=== PATIENT | male | born 1985 | race Caucasian/White ===

== ENCOUNTER 2018-11-16 05:52 | Day surgery (SDC) | payer OTHER ==
[2018-11-16] MEDS ORDERED: ceFAZolin 2 GM/50 ML 2 GM/50 ML BAG IV ONE (06:15)
[2018-11-16] MEDS ORDERED: LACTATED RINGERS 1,000 ML IV ONE (06:42)
--- NOTE | 2018-11-16 07:06 | ANESTHESIA ---
Pre-Anesthesia VS, & Labs - Diagnosis anal fissure, penile mass - Procedure anal fissurectomy, lateral sphincterotomy excision of penile shaft mass/lesion Vital Signs: Temp Pulse Resp BP Pulse Ox 36.9 C 80 18 137/97 H 97 11/16/18 06:15 11/16/18 06:15 11/16/18 06:15 11/16/18 06:15 11/16/18 06:15 Height 6 ft 2 in Weight (kg) 108.3 kg - NPO >8 hours Home Medications and Allergies Home Medications: Ambulatory Orders Ibuprofen 600 mg PO Q8HR PRN 11/08/18 Melatonin 1 mg PO QPM PRN 11/08/18 Ibuprofen 600 mg PO Q8HR PRN 11/08/18 Melatonin 1 mg PO QPM PRN 11/08/18 Allergies/Adverse Reactions: Allergies Allergy/AdvReac Type Severity Reaction Status Date / Time No Known Drug Allergies Allergy Verified 11/08/18 10:39 Anes History & Medical History - Anesthetic History Anesthesia Complications: reports: No previous complications - Medical History Cardiovascular: reports: Hypertension Pulmonary: reports: None Gastrointestinal: reports: None Urinary: reports: Kidney stones Musculoskeletal: reports: Chronic back pain Endocrine/Autoimmune: reports: None Skin: reports: None Exam General: Alert Dental: Other (upper permenant bridge) Mouth Opening: Greater than 4 Fingerbreadths Neck Mobility: Normal Mallampati classification: II Thyromental Distance: greater than 6 cm Respiratory: Lungs clear Cardiovascular: Regular rate Plan Anesthesia Type: General, MAC Consent for Procedure(s) Verified and Reviewed: Yes Code Status: Attempt Resuscitation ASA classification: 2-Mild systemic disease Is this case an emergency?: No
[2018-11-16] MEDS ORDERED: BUPIVACAINE 0.5% PF 30 ML VIAL ONE (07:08)
[2018-11-16] MEDS ORDERED: BUPIVACAINE 0.5%-EPI 1:200000 PF 30 ML VIAL ONE (07:08)
[2018-11-16] MEDS ORDERED: LIDOCAINE OINTMENT 5% 35.44 GM TUBE ONE (07:09)
[2018-11-16] MEDS ORDERED: LIDOCAINE 1% 50 ML MDV ONE (07:09)
[2018-11-16] MEDS ORDERED: LIDOCAINE JELLY 2% 6 ML JEL.PF.APP ONE (07:44)
[2018-11-16] MEDS ORDERED: ONDANSETRON 4 MG/2 ML VIAL IVP ONE (08:00)
[2018-11-16] MEDS ORDERED: fentaNYL 100 MCG/2 ML VIAL IVP ONE (08:00)
[2018-11-16] MEDS ORDERED: KETOROLAC 30 MG/ML VIAL IVP ONE (08:00)
[2018-11-16] MEDS ORDERED: LIDOCAINE-MPF 2% 5 ML VIAL IM ONE (08:00)
[2018-11-16] MEDS ORDERED: DEXAMETHASONE 4 MG/ML VIAL IVP ONE (08:00)
[2018-11-16] MEDS ORDERED: MIDAZOLAM 2 MG/2 ML VIAL IVP ONE (08:00)
[2018-11-16] MEDS ORDERED: PROPOFOL 200 MG/20 ML VIAL IVP ONE (08:00)
[2018-11-16] MEDS ORDERED: LIDOCAINE JELLY 2% 6 ML JEL.PF.APP UR ONE (08:12)
[2018-11-16] MEDS ORDERED: BUPIVACAINE 0.5% PF 30 ML VIAL INFIL ONE (08:13)
--- NOTE | 2018-11-16 08:57 | OPERATIVE REPORT ---
Operative Report - General Procedure Date: 11/16/18 Planned Procedure: Anal fissurectomy, lateral internal anal sphincterotomy, and excision of pe Pre-Op Diagnosis: Anal fissure and penile shaft lesion Procedure Performed: Anal fissurectomy Lateral internal anal sphincterotomy Excision of penile shaft lesion Post Op Diagnosis: Same - Procedure Note Primary Surgeon: Jose Luis Martin MD Anesthesia Provider: William Levi CRNA Anesthesia Technique: General LMA, Local (30 mL of half percent Marcaine) IV Fluids (mL): 700 Estimated Blood Loss (mL): 5 Drain/Tube Type: Other (None.) Complications: None. - Other Other Information/Narrative: OPERATIVE DESCRIPTION/REPORT: After verbal and written informed consent was obtained detailing the risks of infection, bleeding requiring transfusion with its risks, nerve injury, and , and after I met with the patient confirming the surgery and the site of the surgery, the patient was brought to the operative suite and placed supine on the operating table. Great care was taken to avoid pressure points to prevent pressure necrosis or nerve injury. Monitoring devices were applied along with TEDs and pneumatic compressive stockings (to prevent DVT). The patient received preoperative antibiotics for surgical prophylaxis. William Levi CRNA sedated and anesthetized the patient for the entire procedure. The patient was then placed in lithotomy position. The patient was prepped and draped in the usual sterile manner. A "time in" then confirmed that the patient was identified with 3 identifiers (name, date and medical record number), the history and physical was in the chart, the signed consent confirming the procedure was in the chart, the patient was in the correct position, the aforementioned prophylactic measures were in place or given, we had the correct personnel and equipment to complete the procedure and that anesthesia, surgery and nursing were given an opportunity to express any concerns. With the agreement of everyone in the room, we proceeded with the operation. After injecting the area underneath the penile lesion with half percent Marcaine raising a wheal, the lesion was excised using Metzenbaum scissors in an elliptical fashion. The skin was approximated using 2 simple 4-0 Monocryl sutures. These were placed in a standard fashion not in a subcuticular fashion primarily for hemostatic purposes. The lesion was sent in formalin for pathologic evaluation. After circumferentially injecting the anal and perianal area with % marcaine, the bivalve anal retractor was placed in the patients anus after thoroughly lubricating it with a water-soluble lubricant. 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 This was excised using serial application of the Bovie electrocautery and meticulous hemostasis was noted. At the patient's left hand side, what would be the 9 o'clock position, a 15 blade knife was used to incise the internal sphincter after palpating the area to ensure that the knife was inserted into the intersphincteric groove. A very small incision in the mucosa was made. Hemostasis was obtained using Bovie electrocautery and the wound was not closed. A roll of gelfoam and 2% lidocaine jelly was fashioned and inserted into the patients anus. The entire anal area was re-injected with % marcaine to try to ensure long-term pain control. A total of 30 mL of half percent Marcaine was injected. At this point a time out was performed that confirmed that all the counts were correct, the procedure that was performed, the blood loss, the IV fluids administered, and the patients condition. Having tolerated the procedure well, the patient was subsequently extubated and taken to recovery room in good and stable condition. [employer] disclaimer: This document was created in part using voice recognition technology. Because of the inherent limitations of the system ([employer]'s [employer] user manual states that the licensee understands that speech recognition is a statistical process and that recognition errors are inherent in the process), occasional same sounding word substitutions and grammatical errors do occur and persist despite proofreading. Please read this document for context.
[2018-11-16] MEDS ORDERED: HYDROmorphone 0.5 MG/0.5 ML SYRINGE IVP PRN (09:07)
[2018-11-16] MEDS ORDERED: ONDANSETRON 4 MG/2 ML VIAL IVP PRN (09:07)
[2018-11-16] MEDS ORDERED: HYDROcod/ACETAM 5/325 MG TABLET PO PRN (09:07)
[2018-11-16 10:07] VITALS: BP 136/98
[2018-11-16] MEDS ORDERED: HYDROcod/ACETAM 5/325 MG TABLET ONE (10:28)
== END 2018-11-16 05:53 | disposition home or self-care (01) ==
LOC: SDS 05:52
PROVIDERS: ATTEND Surgery
PROC: 0VBS0ZZ Excision of Penis, Open Approach (ICD-10-PCS; 2018-11-16)
PROC: 0DBQ0ZZ Excision of Anus, Open Approach (ICD-10-PCS; principal; 2018-11-16 07:30)
PROC: 0D8R0ZZ Division of Anal Sphincter, Open Approach (ICD-10-PCS; 2018-11-16 07:30)
DX: K60.2 Anal fissure, unspecified (principal); N48.89 Other specified disorders of penis; I10 Essential (primary) hypertension; F17.290 Nicotine dependence, other tobacco product, uncomplicated
CPT/HCPCS: 11424; 46200; A9270; J0690; J7120